=== PATIENT | female | born 1955 | race Caucasian/White ===

== ENCOUNTER 2018-04-28 17:05 | Observation (INO) ==
[2018-04-28 17:32] LABS: Basophils # 0.1 K/mcL (0.0-0.2); Basophils % 0.6 %; Eosinophils # 0.3 K/mcL (0.0-0.6); Eosinophils % 3.9 %; Hematocrit 35.3 % (35.3-44.9); Hemoglobin 11.4 g/dL (11.5-15.4); Immature Granulocytes % 0.2 % (0-4); Lymphocytes % 24.3 %; Mean Corpuscular HGB Conc 32.3 g/dL (31.6-35.5); Mean Corpuscular Hemoglobin 28.2 pg (28.0-33.3); Mean Corpuscular Volume 87.4 fL (83.0-100.0); Mean Platelet Volume 10.1 fL (9.4-12.4); Monocytes # 0.5 K/mcL (0.0-1.3); Monocytes % 6.5 %; Neutrophils # 5.3 K/mcL (1.6-8.9); Platelet Count 255 K/mcL (140-400); Red Blood Count 4.04 M/mcL (3.82-4.97); Red Cell Distribution Width 13.8 % (11.5-14.5); Segmented Neutrophils % 64.5 %
[2018-04-28] MEDS ORDERED: Ipratropium/Albuterol Neb 3 ML IH ONE (17:33)
[2018-04-28] MEDS ORDERED: Aspirin 81 MG TAB.CHEW PO ONE (17:33)
[2018-04-28] MEDS ORDERED: methylPREDNISolone 125 MG/2 ML VIAL IM ONE (17:34)
[2018-04-28 17:40] LABS: INR 0.9; Prothrombin Time 10.5 Seconds (9.4-12.1)
[2018-04-28] MEDS ORDERED: methylPREDNISolone 125 MG/2 ML VIAL IVP ONE (17:40)
[2018-04-28 17:43] LABS: Activated Partial Thrombo Time 31.1 Seconds (26.0-36.0)
[2018-04-28] MEDS ORDERED: *HR* LORazepam 2 MG/ML VIAL IVP ONE (17:43)
[2018-04-28 17:51] LABS: BUN/Creatinine Ratio 17 (6-26); Blood Urea Nitrogen 16 mg/dL (8-23); Calcium 9.5 mg/dL (8.6-10.3); Carbon Dioxide 28 mEq/L (23-29); Chloride 104 mEq/L (98-107); Glucose 101 mg/dL (70-105); Osmolality,Calculated 291 (280-300); Potassium 3.6 mEq/L (3.5-5.1); Sodium 140 mEq/L (136-145); eGFR For Non-African Americans 59 (> 60)
[2018-04-28 17:52] LABS: Troponin I < 0.03 ng/mL (< 0.04)
[2018-04-28] MEDS ORDERED: Isovue-370 500 ML INFUS..BTL IV ONE ×2 (18:16→22:05)
--- NOTE | 2018-04-28 19:13 | Emergency Department Note ---
Disposition Clinical Impression: Wheeze, Chest pain at rest, SOB (shortness of breath), Dizziness COPD (chronic obstructive pulmonary disease) Qualifiers: COPD type: unspecified COPD Qualified Code(s): J44.9 - Chronic obstructive pulmonary disease, unspecified Disposition: Admitted As Inpatient Condition: Good Instructions: Chest Pain (ED), Angina (ED), Chronic Obstructive Pulmonary Disease (ED) Referrals: Lisa Huff [Primary Care Provider] - Forms: ED Satisfaction Letter Time of Disposition: 19:30 (Dr Gaytan accepted the pt for serial trop and EKHG r/ O Angina) Chest Pain HPI - General Chief Complaint: ED Chest Pain Stated Complaint: chest pain x 15 minutes Source: patient Limitations: no limitations Vital Signs Reviewed: Yes Nursing Notes Reviewed: Yes - History of Present Illness HPI Narrative: Patient is a pleasant 62-year-old female with past medical history significant for HTN, DM, Dyslipidemia and COPD who is presenting to [facility] Emergency Room with a chief complaint off acute onset of chest pain which started 15 minutes prior to arrival. She describes pain 9/10 sharp and stabbing and pointing to mid chest and associated with SOB. Patient denies any fever, chills or night sweats. Pt also denies any eye pain or visual disturbances. There is no sore throat, nasal drainages or facial congestion. There is no palpitations or racing heart. There is no abdominal pain, nausea, vomiting or diarrhea. There is no urgency, frequency or dysuria. There is no muskulo- skeletal pain, arthralgia or back pain. Patient also denies any rash, edema or pruritus. There is no neurological manifestations, no headache, no vertigo or weakness. The patient also denies any anxiety, depression, hallucinations and has no homicidal or suicidal ideations. There is no polyuria, polydipsia or recent weight change. There is no easy bruising or bleeding. Review of other systems is otherwise negative except above. Duration: gradually worsening Onset: during rest Pain Location: epigastric Severity scale (1-10): 7 Quality: heaviness Improves with: nothing - Related Data Home Medications Medication Instructions Recorded Confirmed BuPROPion SR (12 HR) [Wellbutrin 300 mg PO QAM 01/08/16 02/18/16 SR] Colestipol HCl [Colestid] 2 gm PO DAILY 01/08/16 02/18/16 Furosemide [Lasix] 20 mg PO DAILY 01/08/16 02/18/16 Gabapentin [Neurontin] 800 mg PO QID 01/08/16 02/18/16 HYDROmorphone [Dilaudid] 2 mg PO Q6HR 01/08/16 02/18/16 Loratadine [Claritin] 10 mg PO DAILY 01/08/16 02/18/16 Losartan Potassium [Cozaar] 50 mg PO DAILY 01/08/16 02/18/16 Omeprazole [PriLOSEC] 40 mg PO DAILY 01/08/16 02/18/16 Potassium Chloride [Klor-Con 10 meq PO DAILY 01/08/16 02/18/16 Sprinkle] TraZODone 50 - 100 mg PO HS 01/08/16 02/18/16 Triamterene/HCTZ 37.5/25mg 1 each PO DAILY 01/08/16 02/18/16 [Dyazide] Venlafaxine XR (24 HR) [Effexor Xr] 37.5 mg PO DAILY 01/08/16 02/18/16 clonazePAM [Klonopin] 0.5 mg PO BID PRN 01/08/16 02/18/16 metFORMIN [Glucophage] 1,000 mg PO BIDWM 01/08/16 02/18/16 predniSONE [PredniSONE] 60 mg PO ONCE 02/18/16 02/18/16 Previous Rx's Medication Instructions Recorded Meclizine [Antivert] 25 mg PO TID PRN #30 tablet 01/11/16 amLODIPine [Norvasc] 10 mg PO DAILY #60 tablet 01/11/16 cloNIDine HCl [CloNIDine HCl] 0.3 mg PO TID #90 tablet 01/11/16 Aspirin 81 mg PO DAILY #30 tab.chew 02/18/16 Allergies Allergy/AdvReac Type Severity Reaction Status Date / Time iodine AdvReac Hypotension Verified 01/09/16 12:18 pregabalin [From Lyrica] AdvReac See Verified 01/07/16 22:06 Comments topiramate [From Topamax] AdvReac See Verified 02/18/16 06:45 Comments flu vaccine Allergy Severe See Uncoded 02/18/16 06:45 Comments All systems ED: reviewed and negative except as stated. Review of Systems: As Per HPI Constitutional: Denies: fever, chills Eyes: Denies: eye pain, eye discharge ENT ED: Denies: ear pain, throat pain Cardiovascular: Reports: chest pain. Denies: palpitations Respiratory: Reports: dyspnea. Denies: cough Gastrointestinal: Reports: nausea. Denies: abdominal pain Chest Pain PMH - Past Medical History Medical history: Reports: diabetes, GERD, hyperlipidemia, hypertension Surgical history: Reports: appendectomy, cholecystectomy, hysterectomy, knee replacement Psychiatric history: Reports: depression - Social History Smoking Status: Current every day smoker Alcohol use: Reports: none Drug use: Reports: none Physical Exam - General Limitations: no limitations General appearance: alert, in no apparent distress, anxious - Head Head exam: atraumatic, normocephalic, normal inspection - Eye Eye exam: Present: normal appearance, PERRL, EOMI - Expanded Eye Exam Pupils: Left: reactive - ENT ENT exam: normal exam, normal oropharynx, mucous membranes moist - Expanded ENT Exam External ear exam: Present: normal external inspection Mouth exam: Present: normal external inspection Teeth exam: Present: normal inspection Throat exam: Present: normal inspection - Neck Neck exam: Present: normal inspection, full ROM, trachea midline - Chest Chest inspection: Present: normal inspection, symmetric chest wall rise - Respiratory Respiratory exam: Present: wheezes, prolonged expiratory phase, other ( diminished air entry) - Cardiovascular Cardiovascular exam: Present: regular rate, normal rhythm, normal heart sounds - Abdominal Exam Abdominal exam: Present: soft, Non-Tender. Absent: tenderness, distention, guarding, rebound, rigidity - Extremities Exam Extremities exam: Present: normal inspection, full ROM. Absent: tenderness, pedal edema - Expanded Upper Extremity Exam Shoulder exam: Present: normal inspection, full ROM Arm exam: Present: normal inspection, full ROM Elbow exam: Present: normal inspection, full ROM Forearm/Wrist exam: Present: normal inspection, full ROM Hand exam: Present: normal inspection, full ROM Vascular exam: Normal: capillary refill, radial pulse - Expanded Lower Extremity Exam Hip/Pelvis exam: Present: normal inspection, full ROM Upper leg exam: Present: normal inspection, full ROM Knee exam: Present: normal inspection, full ROM Lower leg exam: Present: normal inspection, full ROM Ankle exam: Present: normal inspection, full ROM Foot/toe exam: Present: normal inspection, full ROM Neurovascular/Tendon exam: Absent: motor deficit, sensory deficit, tendon deficit - Back Exam Back exam: Present: normal inspection, full ROM. Absent: tenderness - Neurological Exam Neurological exam: Present: alert, oriented X3 - Expanded Neurological Exam Patient oriented to: Present: person, place, time Coma Scale Eye Opening: Spontaneous Coma Scale Motor Response: Obeys Commands Coma Scale Verbal Response: Oriented Coma Scale Total: 15 - Psychiatric Psychiatric exam: Present: normal affect, normal mood, anxious - Skin Skin exam: Present: warm, dry, intact, normal color Course Vital Signs Temperature 98.0 F 04/28/18 17:05 Pulse Rate 80 04/28/18 17:05 Respiratory Rate 20 04/28/18 17:05 Blood Pressure 0/0 04/28/18 17:05 O2 Sat by Pulse Oximetry 93 04/28/18 17:05 Temperature 98.0 F 04/28/18 17:05 Pulse Rate 69 04/28/18 18:07 Respiratory Rate 18 04/28/18 18:07 Blood Pressure 169/85 04/28/18 18:07 O2 Sat by Pulse Oximetry 95 04/28/18 18:07 Oxygen Delivery Oxygen Delivery Nasal Cannula Chest Pain - Differential Diagnosis Likely: pneumothorax, stable angina, unstable angina pectoris, st elevation myocardial infraction - Medical Records Medical records reviewed: Yes I reviewed the patient's medical records. - Lab Data Lab results reviewed: Yes I reviewed the patient's lab results. Result diagrams: 04/28/18 17:23 04/28/18 17:23 Lab Results 04/28/18 04/28/18 04/28/18 Range/Units 17:23 17:23 17:23 WBC 8.2 (4.3-11.1) K/mcL RBC 4.04 (3.82-4.97) M/mcL Hgb 11.4 L (11.5-15.4) g/dL Hct 35.3 (35.3-44.9) % MCV 87.4 (83.0-100.0) fL MCH 28.2 (28.0-33.3) pg MCHC 32.3 (31.6-35.5) g/dL RDW 13.8 (11.5-14.5) % Plt Count 255 (140-400) K/mcL MPV 10.1 (9.4-12.4) fL Immature Gran % 0.2 (0-4) % Seg Neutrophils % 64.5 % Lymphocytes % 24.3 % Monocytes % 6.5 % Eosinophils % 3.9 % Basophils % 0.6 % Neutrophils # 5.3 (1.6-8.9) K/mcL Lymphocytes # 2.0 (0.6-4.6) K/mcL Monocytes # 0.5 (0.0-1.3) K/mcL Eosinophils # 0.3 (0.0-0.6) K/mcL Basophils # 0.1 (0.0-0.2) K/mcL PT 10.5 (9.4-12.1) Seconds INR 0.9 APTT 31.1 (26.0-36.0) Seconds Sodium 140 (136-145) mEq/L Potassium 3.6 (3.5-5.1) mEq/L Chloride 104 (98-107) mEq/L Carbon Dioxide 28 (23-29) mEq/L BUN 16 (8-23) mg/dL Creatinine 0.95 (0.60-1.20) mg/dL Est GFR ( Amer) > 60 (> 60) Est GFR (Non-Af Amer) 59 L (> 60) BUN/Creatinine Ratio 17 (6-26) Glucose 101 (70-105) mg/dL Calculated Osmolality 291 (280-300) Lactic Acid (0.5-2.2) mmol/L Calcium 9.5 (8.6-10.3) mg/dL Troponin I < 0.03 (< 0.04) ng/mL 04/28/18 Range/Units 17:23 WBC (4.3-11.1) K/mcL RBC (3.82-4.97) M/mcL Hgb (11.5-15.4) g/dL Hct (35.3-44.9) % MCV (83.0-100.0) fL MCH (28.0-33.3) pg MCHC (31.6-35.5) g/dL RDW (11.5-14.5) % Plt Count (140-400) K/mcL MPV (9.4-12.4) fL Immature Gran % (0-4) % Seg Neutrophils % % Lymphocytes % % Monocytes % % Eosinophils % % Basophils % % Neutrophils # (1.6-8.9) K/mcL Lymphocytes # (0.6-4.6) K/mcL Monocytes # (0.0-1.3) K/mcL Eosinophils # (0.0-0.6) K/mcL Basophils # (0.0-0.2) K/mcL PT (9.4-12.1) Seconds INR APTT (26.0-36.0) Seconds Sodium (136-145) mEq/L Potassium (3.5-5.1) mEq/L Chloride (98-107) mEq/L Carbon Dioxide (23-29) mEq/L BUN (8-23) mg/dL Creatinine (0.60-1.20) mg/dL Est GFR ( Amer) (> 60) Est GFR (Non-Af Amer) (> 60) BUN/Creatinine Ratio (6-26) Glucose (70-105) mg/dL Calculated Osmolality (280-300) Lactic Acid 0.5 (0.5-2.2) mmol/L Calcium (8.6-10.3) mg/dL Troponin I (< 0.04) ng/mL - Radiology Data Radiology results reviewed: Yes I reviewed the patient's radiology results. - EKG Data EKG attestation: Yes I reviewed and interpreted this EKG. EKG shows normal: sinus rhythm Rate: normal Rhythm: NSR
[2018-04-28] MEDS ORDERED: Naloxone 0.4 MG/ML INJ IVP PRN ×3 (20:11→22:05)
[2018-04-28] MEDS ORDERED: predniSONE 20 MG TABLET PO ONE (20:15)
[2018-04-28] MEDS ORDERED: clonazePAM 0.5 MG TABLET PO PRN (22:05)
[2018-04-28] MEDS: Gabapentin 400 MG CAPSULE PO SCH (22:51)
[2018-04-28] MEDS: cloNIDine HCl 0.1 MG TABLET PO SCH (22:51)
[2018-04-29] MEDS: *HR* HYDROmorphone 2 MG TABLET PO SCH ×3 (00:21→12:28)
[2018-04-29] MEDS ORDERED: Insulin DETEMIR 100 UNIT/ML per UNIT SQ ONE (01:00)
[2018-04-29] MEDS ORDERED: *HR* Dextrose 50 % in Water (Syg) 50 ML SYRINGE IVP PRN (01:15)
[2018-04-29] MEDS ORDERED: Insulin LISPRO 300 UNITS/3 ML VIAL SQ SCH (01:15)
[2018-04-29] MEDS ORDERED: Dextrose Gel 15 GM/37.5 ML TUBE PO PRN ×2 (01:15)
[2018-04-29] MEDS ORDERED: D5% in Water 1,000 ML IVC PRN (01:15)
[2018-04-29 03:47] LABS: Basophils % 0.2 %; Eosinophils % 0.1 %; Hematocrit 33.2 % (35.3-44.9); Hemoglobin 10.8 g/dL (11.5-15.4); Immature Granulocytes % 0.5 % (0-4); Lymphocytes # 0.6 K/mcL (0.6-4.6); Lymphocytes % 5.7 %; Mean Corpuscular HGB Conc 32.5 g/dL (31.6-35.5); Mean Corpuscular Hemoglobin 28.1 pg (28.0-33.3); Mean Corpuscular Volume 86.2 fL (83.0-100.0); Mean Platelet Volume 10.2 fL (9.4-12.4); Monocytes # 0.1 K/mcL (0.0-1.3); Monocytes % 0.8 %; Neutrophils # 9.8 K/mcL (1.6-8.9); Platelet Count 237 K/mcL (140-400); Red Blood Count 3.85 M/mcL (3.82-4.97); Red Cell Distribution Width 13.7 % (11.5-14.5); Segmented Neutrophils % 92.7 %
[2018-04-29 04:06] LABS: Alanine Aminotransferase 11 Units/L (7-52); Albumin 3.5 g/dL (3.5-5.7); Albumin/Globulin Ratio 1.3 (1.1-2.2); Alkaline Phosphatase 77 Units/L (34-104); Aspartate Amino Transferase 11 Units/L (13-39); BUN/Creatinine Ratio 23 (6-26); Bilirubin,Total 0.2 mg/dL (0.3-1.0); Blood Urea Nitrogen 25 mg/dL (8-23); Carbon Dioxide 24 mEq/L (23-29); Chloride 102 mEq/L (98-107); Chol/HDL Ratio 3.6 (0-4.9); Cholesterol 140 mg/dL (< 200); Globulin 2.8 g/dL (2.4-3.5); Glucose 302 mg/dL (70-105); HDL Cholesterol 39 mg/dL (40-59); LDL Cholesterol,Calculated 77 mg/dL (0-99); Magnesium 1.8 mg/dL (1.6-2.6); Osmolality,Calculated 300 (280-300); Phosphorous 3.9 mg/dL (2.7-4.5); Potassium 3.9 mEq/L (3.5-5.1); Sodium 137 mEq/L (136-145); Total Protein 6.3 g/dL (6.4-8.9); Triglycerides 118 mg/dL (< 150); eGFR For Non-African Americans 52 (> 60)
[2018-04-29] MEDS ORDERED: *HR* Metformin 500 MG TABLET PO SCH (08:00)
[2018-04-29] MEDS: Gabapentin 400 MG CAPSULE PO SCH ×2 (08:36→12:28)
[2018-04-29] MEDS: cloNIDine HCl 0.1 MG TABLET PO SCH (08:38)
[2018-04-29] MEDS: Insulin LISPRO 300 UNITS/3 ML VIAL SQ SCH ×2 (08:40→12:29)
[2018-04-29] MEDS ORDERED: amLODIPine 5 MG TABLET PO SCH (09:00)
[2018-04-29] MEDS ORDERED: Aspirin 81 MG TAB.CHEW PO SCH (09:00)
[2018-04-29] MEDS ORDERED: (Colestipol Hcl [Colestid] 2 GM) PO SCH (09:00)
[2018-04-29] MEDS ORDERED: Loratadine 10 MG TABLET PO SCH (09:00)
[2018-04-29] MEDS ORDERED: Furosemide 20 MG TABLET PO SCH (09:00)
[2018-04-29] MEDS ORDERED: BuPROPion SR (12 HR) 150 MG TABLET PO SCH (09:00)
[2018-04-29] MEDS ORDERED: Venlafaxine XR (24 HR) 37.5 MG CAP.ER.24H PO SCH (09:00)
[2018-04-29 11:49] VITALS: BP 145/80
--- NOTE | 2018-04-29 12:32 | Internal Med History&Physical ---
Date of Encounter: 04/29/18 Time of Encounter: 12:00 Assessment and Plan (1) Chest pain Current visit: Yes Status: Acute Doubt myocardial ischemia from history and physical. Suspect chest wall origin. Repeat cardiac enzymes were ordered through emergency room. Qualifiers: Chest pain type: precordial pain Qualified Code(s): R07.2 - Precordial pain (2) Hypertension Current visit: No Status: Chronic Continue home medications and monitor blood pressure. Qualifiers: Hypertension type: essential hypertension Qualified Code(s): I10 - Essential (primary) hypertension Internal Medicine - H&P: HPI Chief complaint: Chest pain, cough, dyspnea Admitted From: Emergency Dept Plans for Post Hospital Care: Home History of present illness: Ms. Morgan is a 62 year old female who came to emergency room complaining of sudden onset of chest discomfort while doing leisure activities in her kitchen. She describes it as a sharp pain in her mid sternal area. She had slight cough with little productivity. She came to emergency room and was evaluated and was admitted to [facility] floor for ongoing care needs. She states she still has some discomfort in her chest but it is now a dull sensation. She has had increased cough with little productivity. She has not had significant fevers or chills. Respiratory history is significant for having smoked from age 12 a total of 25 years up to one pack per day. She reports unremarkable PFTs approximately 20 years ago. She has ANTHONY and uses CPAP at bedtime. Cardiovascular history is significant for hypertension. She denies MD heart failure angina DVT or pulmonary embolus. She has heart catheter 02/18/2016 at [facility] which showed 20% stenosis in the proximal circumflex and 20% stenosis in the proximal RCA. Other vessels showed no CAD. LVEF was 70%. Echocardiogram 08/26/2017 showed LVEF of 60% with reported mild LV diastolic dysfunction although E/A ratio is 1.0. No significant valvular abnormalities were seen. The interventricular septum and posterior wall thickness measurements were 1.36 and troponin a 2 cm respectively. LAE was seen at 4.20 cm. Past Med Surg Social Fam HX - Past Medical History Medical history: diabetes, GERD, hyperlipidemia, hypertension Additional medical history: sleep apnea, malignant melanoma, stress incontinence , hemngioma, URI, rosacea, osteoporosis, neuropathy, lumbar DDD Psychiatric history: depression - Past Surgical History Surgical History: appendectomy, cholecystectomy, hysterectomy, knee replacement Additional surgical history: melanoma excision, HYSTERECTOMY - Social History Smoking Status: Current every day smoker Packs per day: 1 Smokeless Tobacco Status: No Alcohol use: none Drug use: none - Family History Mother Hx Family Cardiac Disorders: Yes Father Hx Family Cardiac Disorders: Yes Brother Hx Family Cardiac Disorders: Yes Internal Medicine - H&P: Meds BuPROPion SR (12 HR) [Wellbutrin SR] 150 mg PO QAM 01/08/16 [History] Colestipol HCl [Colestid] 2 gm PO DAILY 01/08/16 [History] Furosemide [Lasix] 20 mg PO DAILY 01/08/16 [History] Gabapentin [Neurontin] 800 mg PO QID 01/08/16 [History] HYDROmorphone [Dilaudid] 2 mg PO Q6HR 01/08/16 [History] clonazePAM [Klonopin] 0.5 mg PO BID PRN 01/08/16 [History] amLODIPine [Norvasc] 10 mg PO DAILY #60 tablet 01/11/16 [Rx] cloNIDine HCl [CloNIDine HCl] 0.3 mg PO TID #90 tablet 01/11/16 [Rx] Aspirin 81 mg PO DAILY #30 tab.chew 02/18/16 [Rx] Famotidine [Heartburn Prevention] 20 mg PO DAILY 04/28/18 [History] Insulin Degludec [Tresiba Flextouch U-200] 44 units SQ DAILY 04/28/18 [History] Metoprolol Tartrate 25 mg PO DAILY 04/28/18 [History] NIFEdipine [Nifedipine ER] 60 mg PO DAILY 04/28/18 [History] Sodium Bicarbonate 650 mg PO BID 04/28/18 [History] Spironolactone [Aldactone] 100 mg PO DAILY 04/28/18 [History] lamoTRIgine [Lamotrigine] 150 mg PO DAILY 04/28/18 [History] 3 Allergy/AdvReac Type Severity Reaction Status Date / Time iodine AdvReac Hypotension Verified 01/09/16 12:18 pregabalin [From Lyrica] AdvReac See Verified 01/07/16 22:06 Comments topiramate [From Topamax] AdvReac See Verified 02/18/16 06:45 Comments flu vaccine Allergy Severe See Uncoded 02/18/16 06:45 Comments All Systems PM: A 10-system review of systems was performed and is negative for pertinent findings except as documented above in the HPI. Review of systems: Gen.: She states her weight has been stable the past few months Cardiovascular: As per history of present illness Respiratory: As per history of present illness GI: She has GERD. She has had cholecystectomy. She denies disorders of her liver or exocrine pancreas : She has chronic kidney disease stage III and follows with a oil exploration engineer. She reports she has overactive bladder with urinary frequency. Neurologic: She reports she had a stroke in 2016 leaving her with impaired memory and balance. She denies seizures. She has diabetic peripheral neuropathy. Endocrine: She was diagnosed with DM 2 1997. She has hyperlipidemia but denies known thyroid disease. Hematology/oncology: She had melanoma removed from her right lower leg in 1994 without recurrence. She has anemia. She denies other blood disorders or malignancies. Psychiatric: She has anxiety and depression but denies other mental health issues. Musko skeletal: She has DJD. She has had bilateral shoulder surgeries and right total knee replacement. She denies gout or other bone joint or muscle disorders. - Constitutional Vitals: Temp Pulse Resp BP Pulse Ox 98.6 F 81 18 145/80 95 04/29/18 11:48 04/29/18 11:48 04/29/18 11:48 04/29/18 11:48 04/29/18 11:48 Exam: Gen.: She is a well-developed overweight female resting comfortably on the side of bed who appears in minimal distress at present time. HEENT: Head is atraumatic and normocephalic. Eyes: EOMI. There is no scleral icterus. Mouth: Mucosa is moist. Neck: Supple and nontender. There is no thyromegaly or adenopathy noted. Heart: Regular without murmurs gallops or ectopics Lungs: No wheezes or crackles are heard. She has occasional coughing during examination. Chest: She has tenderness on compression of costosternal joints stating "that is the pain" Abdomen: Soft and nontender. No masses or guarding are noted. Extremities: There is no cyanosis edema or clubbing noted. Dorsalis pedis and posttibial pulses are trace to 1+ palpable bilaterally. Her feet are warm to touch. Neurologic: Mental status: She is talkative and a good historian. Cranial nerves: Smile is symmetric. Forehead wrinkles bilaterally. Tongue protrudes midline. EOMI. Motor: There is no pronator drift. Cerebellar: Finger to nose is intact bilaterally. Skin: Warm and dry Internal Med - H&P Results - Labs CBC & Chem 7: 04/29/18 03:41 04/29/18 03:41 Labs: Short CBC 04/29/18 Range/Units 03:41 WBC 10.6 (4.3-11.1) K/mcL Hgb 10.8 L (11.5-15.4) g/dL Hct 33.2 L (35.3-44.9) % Plt Count 237 (140-400) K/mcL Neutrophils # 9.8 H (1.6-8.9) K/mcL BMP 04/29/18 03:41 Sodium 137 Potassium 3.9 Chloride 102 Carbon Dioxide 24 BUN 25 H Creatinine 1.07 Glucose 302 H Calcium 9.0 Cardiac Enzymes 04/29/18 04/29/18 Range/Units 03:41 08:10 Troponin I < 0.03 < 0.03 (< 0.04) ng/mL Liver Function 04/29/18 Range/Units 03:41 Total Bilirubin 0.2 L (0.3-1.0) mg/dL AST 11 L (13-39) Units/L ALT 11 (7-52) Units/L Alkaline Phosphatase 77 (34-104) Units/L Albumin 3.5 (3.5-5.7) g/dL
--- NOTE | 2018-04-29 12:49 | Discharge Summary ---
Date of Encounter: 04/29/18 Time of Encounter: 12:00 - Discharge Diagnosis (1) Chest pain Priority: Primary Status: Acute Qualifiers: Chest pain type: precordial pain Qualified Code(s): R07.2 - Precordial pain (2) Hypertension Priority: Secondary Status: Chronic Qualifiers: Hypertension type: essential hypertension Qualified Code(s): I10 - Essential (primary) hypertension Hospital course: Ms. Morgan is a 62 year old female who came to emergency room complaining of sudden onset of chest discomfort while doing leisure activities in her kitchen. She describes it as a sharp pain in her mid sternal area. She had slight cough with little productivity. She came to emergency room and was evaluated and was admitted to [facility] for ongoing care needs. Initial orders were written by the emergency room physician. I saw her on April 29 and performed a history physical and discharge. Repeat cardiac enzymes showed no evidence of myocardial damage. When I saw her I felt the chest pain was likely chest wall origin since it was reproducible by sternal compression. I told her I did not feel she should take NSAIDs because of renal insufficiency. I also told her prednisone would likely significantly raise her blood glucose. She will use OTC Tylenol and topical NSAIDs like BenGay as needed. Her PCP can follow up on this and consider costosternal joint injections if symptoms do not improve. There were no other new problems and on April 29 she was stable for discharge home. She will follow with her PCP within 1 week. - Time Spent with Patient Total time spent providing and/or coordinating discharge services: - Discharge Medications Home Medications: BuPROPion SR (12 HR) [Wellbutrin SR] 150 mg PO QAM 01/08/16 [History] Colestipol HCl [Colestid] 2 gm PO DAILY 01/08/16 [History] Furosemide [Lasix] 20 mg PO DAILY 01/08/16 [History] Gabapentin [Neurontin] 800 mg PO QID 01/08/16 [History] HYDROmorphone [Dilaudid] 2 mg PO Q6HR 01/08/16 [History] clonazePAM [Klonopin] 0.5 mg PO BID PRN 01/08/16 [History] amLODIPine [Norvasc] 10 mg PO DAILY #60 tablet 01/11/16 [Rx] cloNIDine HCl [CloNIDine HCl] 0.3 mg PO TID #90 tablet 01/11/16 [Rx] Aspirin 81 mg PO DAILY #30 tab.chew 02/18/16 [Rx] Famotidine [Heartburn Prevention] 20 mg PO DAILY 04/28/18 [History] Insulin Degludec [Tresiba Flextouch U-200] 44 units SQ DAILY 04/28/18 [History] Metoprolol Tartrate 25 mg PO DAILY 04/28/18 [History] NIFEdipine [Nifedipine ER] 60 mg PO DAILY 04/28/18 [History] Sodium Bicarbonate 650 mg PO BID 04/28/18 [History] Spironolactone [Aldactone] 100 mg PO DAILY 04/28/18 [History] lamoTRIgine [Lamotrigine] 150 mg PO DAILY 04/28/18 [History] Allergies/Adverse Reactions: 3 Allergy/AdvReac Type Severity Reaction Status Date / Time iodine AdvReac Hypotension Verified 01/09/16 12:18 pregabalin [From Lyrica] AdvReac See Verified 01/07/16 22:06 Comments topiramate [From Topamax] AdvReac See Verified 02/18/16 06:45 Comments flu vaccine Allergy Severe See Uncoded 02/18/16 06:45 Comments Date of admission: 04/28/18 21:02 Primary care physician: Lisa Huff - Constitutional Vitals: Temp Pulse Resp BP Pulse Ox 98.6 F 81 18 145/80 95 04/29/18 11:48 04/29/18 11:48 04/29/18 11:48 04/29/18 11:48 04/29/18 11:48 - Patient Status Disposition: Home, Self-Care Condition: Good - Discharge Instructions Follow Up With: Lisa Huff [Primary Care Provider] - 1 week - Diet and Activity Activity: resume usual activities as tolerated Diet: diabetic diet
[2018-04-29] MEDS ORDERED: Albuterol 2.5 MG/3 ML NEBULIZER IH ONE (13:26)
[2018-04-29] MEDS ORDERED: Insulin DETEMIR 100 UNIT/ML X5UNITS SQ SCH (21:00)
--- NOTE | 2018-04-30 17:34 | Electrocardiograph Report ---
[address] [place], [place] [address] Test Date: 2018-04-28 Pat Name: Madison Morgan Department: [id number] Room: [facility] Gender: F [place] Farmer: [id number] : 1955 Requested By: Tg Lee Order Number: [id number] Reading MD: Kiera Perry Measurements Intervals [place] Rate: 80 P: 65 KS: 201 QRS: 43 QRSD: 86 T: 60 QT: 368 QTc: 404 Interpretive Statements SINUS RHYTHM Electronically Signed On 04-30-2018 17:32:45 EDT by Kiera Perry
== END 2018-04-29 14:45 | disposition home or self-care (01) ==
LOC: INPPIK 17:05 → EMEROOPIK 17:05 → INPPIK 22:03
PROVIDERS: ADMIT Internal Medicine; ATTEND Internal Medicine

== ENCOUNTER 2021-08-12 20:51 | Inpatient (IN) ==
[2021-08-12] MEDS ORDERED: cefTRIAXone 1,000 MG in Water for inj. (sterile) 10 ML IVP ONE (21:17)
[2021-08-12] MEDS ORDERED: Piperacillin/Tazobactam 3.375 GM in 0.9 % Sodium Chloride Mini Bag 100 ML IVPB ONE (21:17)
[2021-08-12 21:31] LABS: Hematocrit 34.6 % (35.3-44.9); Hemoglobin 11.3 g/dL (11.5-15.4); Immature Granulocytes % 0.6 % (0-4); Lymphocytes # 0.4 K/mcL (0.6-4.6); Lymphocytes % 7.6 %; Mean Corpuscular HGB Conc 32.7 g/dL (31.6-35.5); Mean Corpuscular Hemoglobin 28.3 pg (28.0-33.3); Mean Corpuscular Volume 86.5 fL (83.0-100.0); Mean Platelet Volume 11.1 fL (9.4-12.4); Monocytes # 0.2 K/mcL (0.0-1.3); Monocytes % 3.7 %; Neutrophils # 4.3 K/mcL (1.6-8.9); Platelet Count 168 K/mcL (140-400); Red Cell Distribution Width 14.4 % (11.5-14.5); Segmented Neutrophils % 88.1 %; White Blood Count 4.9 K/mcL (4.3-11.1)
[2021-08-12 21:37] LABS: Bilirubin,Urine Negative (Negative); Blood,Urine Small (Negative); Clarity,Urine Cloudy (Clear); Color,Urine Yellow (Yellow); Glucose,Urine (UA) 500 mg/dL (Normal); Ketones,Urine Negative (Negative); Leukocyte Esterase,Urine Negative (Negative); Nitrite,Urine Negative (Negative); Protein,Urine >=300 mg/dL (Neg-Trace); Specific Gravity,Urine 1.025 (1.010-1.025); Urobilinogen,Urine Normal (Normal)
[2021-08-12] MEDS: 0.9 % Sodium Chloride 1,000 ML IVC SCH ×2 (21:40→23:14)
[2021-08-12 21:41] LABS: INR 1.1; Prothrombin Time 12.7 Seconds (9.4-12.1)
[2021-08-12 21:43] LABS: Activated Partial Thrombo Time 31.7 Seconds (26.0-36.0)
[2021-08-12 21:47] LABS: Granular Casts,Urine Moderate per lpf (None Seen)
[2021-08-12 21:50] LABS: Bacteria,Urine Many per hpf (None-Few)
[2021-08-12 21:52] LABS: Alanine Aminotransferase 26 Units/L (7-52); Albumin 3.5 g/dL (3.5-5.7); Albumin/Globulin Ratio 1.2 (1.1-2.2); Alkaline Phosphatase 55 Units/L (34-104); Amylase 24 Units/L (29-103); Aspartate Amino Transferase 40 Units/L (13-39); BUN/Creatinine Ratio 16 (6-26); Bilirubin,Indirect 0.3 mg/dL (0.0-1.0); Bilirubin,Total 0.3 mg/dL (0.3-1.0); Blood Urea Nitrogen 29 mg/dL (8-23); Calcium 7.7 mg/dL (8.6-10.3); Carbon Dioxide 24 mEq/L (23-29); Chloride 101 mEq/L (98-107); Glucose 189 mg/dL (70-105); Lipase 46 Units/L (11-82); Magnesium 1.6 mg/dL (1.6-2.6); Osmolality,Calculated 295 (280-300); Phosphorous 2.4 mg/dL (2.7-4.5); Potassium 3.7 mEq/L (3.5-5.1); Sodium 137 mEq/L (136-145); Total Protein 6.5 g/dL (6.4-8.9); eGFR For African Americans 33 (> 60); eGFR For Non-African Americans 27 (> 60)
[2021-08-12 21:53] LABS: Troponin I < 0.03 ng/mL (< 0.04)
[2021-08-12 21:53] LABS: Squamous Epithelial Cell,Urine Moderate per hpf (None-Few); WBC,Urine TNTC per hpf (0-3)
[2021-08-12] MEDS ORDERED: Ondansetron 4 MG/2 ML VIAL IVP ONE (21:54)
[2021-08-12] MEDS ORDERED: Dexamethasone Sodium Phos/PF 10 MG/ML VIAL IVP ONE (22:16)
[2021-08-13] MEDS: 0.9 % Sodium Chloride 1,000 ML IVC SCH (00:44)
[2021-08-13] MEDS ORDERED: Ondansetron 4 MG/2 ML VIAL IVP PRN ×3 (00:49→01:51)
[2021-08-13] MEDS ORDERED: Naloxone 0.4 MG/ML INJ IVP PRN ×3 (00:49→01:51)
[2021-08-13] MEDS ORDERED: Acetaminophen 325 MG TABLET PO PRN (00:49)
[2021-08-13] MEDS ORDERED: Dextrose Gel 15 GM/37.5 ML TUBE PO PRN ×8 (00:53→17:39)
[2021-08-13] MEDS ORDERED: D5% in Water 1,000 ML IVC PRN ×4 (00:53→17:39)
[2021-08-13] MEDS ORDERED: *HR* Dextrose 50 % in Water (Syg) 50 ML SYRINGE IVP PRN ×4 (00:53→17:39)
[2021-08-13] MEDS ORDERED: MOM Conc 10 ML UD.LIQ PO PRN (01:51)
[2021-08-13] MEDS ORDERED: Mag Hydrox/Al Hydrox/Simeth 30 ML UDC PO PRN (01:51)
[2021-08-13] MEDS ORDERED: 0.9 % Sodium Chloride 1,000 ML IVC SCH (01:51)
[2021-08-13] MEDS ORDERED: Calcium Gluconate 1gm/50mL 1 GM/50 ML BAG IVPB ONE (01:51)
[2021-08-13] MEDS ORDERED: Melatonin 3 MG TABLET PO PRN (01:51)
[2021-08-13] MEDS: Acetaminophen 325 MG TABLET PO PRN (03:30)
[2021-08-13] MEDS: *HR* Heparin 5,000 UNIT/ML VIAL SQ SCH ×4 (05:34→23:23)
[2021-08-13] MEDS ORDERED: *HR* Enoxaparin 40 MG/0.4 ML SYRINGE SQ SCH (06:00)
[2021-08-13] MEDS ORDERED: Insulin LISPRO 300 UNITS/3 ML VIAL SUBQ SCH ×5 (07:30→21:00)
[2021-08-13 07:53] LABS: Basophils % 0.2 %; Hematocrit 36.3 % (35.3-44.9); Hemoglobin 11.5 g/dL (11.5-15.4); Immature Granulocytes % 0.5 % (0-4); Lymphocytes # 0.3 K/mcL (0.6-4.6); Lymphocytes % 6.3 %; Mean Corpuscular HGB Conc 31.7 g/dL (31.6-35.5); Mean Corpuscular Hemoglobin 27.9 pg (28.0-33.3); Mean Corpuscular Volume 88.1 fL (83.0-100.0); Mean Platelet Volume 10.8 fL (9.4-12.4); Monocytes # 0.1 K/mcL (0.0-1.3); Monocytes % 1.7 %; Neutrophils # 3.8 K/mcL (1.6-8.9); Platelet Count 155 K/mcL (140-400); Red Blood Count 4.12 M/mcL (3.82-4.97); Red Cell Distribution Width 14.4 % (11.5-14.5); Segmented Neutrophils % 91.3 %; White Blood Count 4.2 K/mcL (4.3-11.1)
[2021-08-13] MEDS ORDERED: Piperacillin/Tazobactam 3.375 GM in 0.9 % Sodium Chloride Mini Bag 100 ML IVPB SCH ×2 (08:00)
[2021-08-13 08:13] LABS: Calcium 7.6 mg/dL (8.6-10.3); Magnesium 1.7 mg/dL (1.6-2.6); Potassium 4.2 mEq/L (3.5-5.1)
[2021-08-13 08:25] LABS: Thyroid Stimulating Hormone 0.348 mcIU/mL (0.340-5.600)
[2021-08-13] MEDS: Insulin LISPRO 300 UNITS/3 ML VIAL SUBQ SCH ×3 (08:40→16:02)
[2021-08-13] MEDS ORDERED: Ipratropium/Albuterol Neb 3 ML IH SCH (09:00)
[2021-08-13] MEDS ORDERED: cefTRIAXone 2,000 MG in 0.9 % Sodium Chloride Mini Bag 100 ML IVPB SCH (09:00)
[2021-08-13 09:45] LABS: Estimated Average Glucose 160 mg/dl; Hemoglobin A1C 7.2 %
[2021-08-13] MEDS: Piperacillin/Tazobactam 3.375 GM in 0.9 % Sodium Chloride Mini Bag 100 ML IVPB SCH ×2 (10:13→15:47)
[2021-08-13] MEDS ORDERED: Ipratropium/Albuterol Neb 3 ML IH PRN (12:14)
[2021-08-13] MEDS ORDERED: traZODone 50 MG TABLET PO PRN (13:59)
[2021-08-13] MEDS ORDERED: *HR* OxyCODONE Immed Rel 5 MG TABLET PO PRN (13:59)
[2021-08-13] MEDS: Gabapentin 300 MG CAPSULE PO SCH ×2 (15:43→21:30)
[2021-08-13] MEDS: cloNIDine HCL 0.1 MG TABLET PO SCH ×2 (15:43→21:29)
[2021-08-13] MEDS: hydrALAZINE 25 MG TABLET PO SCH ×2 (15:44→21:30)
[2021-08-13] MEDS ORDERED: Insulin DETEMIR 100 UNIT/ML X5UNITS SUBQ SCH (21:00)
[2021-08-13] MEDS: Metoprolol XL (24 HR) Succ 25 MG TAB.ER.24H PO SCH (21:29)
[2021-08-13] MEDS: Budesonide/Formoterol 160/4.5 1 PUFF INH IH SCH (23:21)
[2021-08-14] MEDS: Piperacillin/Tazobactam 3.375 GM in 0.9 % Sodium Chloride Mini Bag 100 ML IVPB SCH ×2 (02:05→08:22)
[2021-08-14] MEDS: Acetaminophen 325 MG TABLET PO PRN ×2 (02:27→08:18)
[2021-08-14] MEDS: *HR* Heparin 5,000 UNIT/ML VIAL SQ SCH (05:59)
[2021-08-14] MEDS: cloNIDine HCL 0.1 MG TABLET PO SCH (08:18)
[2021-08-14] MEDS: hydrALAZINE 25 MG TABLET PO SCH (08:18)
[2021-08-14] MEDS: Metoprolol XL (24 HR) Succ 25 MG TAB.ER.24H PO SCH (08:18)
[2021-08-14] MEDS: Gabapentin 300 MG CAPSULE PO SCH (08:19)
[2021-08-14] MEDS: Insulin LISPRO 300 UNITS/3 ML VIAL SUBQ SCH ×2 (08:24→12:27)
[2021-08-14] MEDS ORDERED: Furosemide 20 MG TABLET PO SCH (09:00)
[2021-08-14] MEDS ORDERED: lamoTRIgine 100 MG TABLET PO SCH (09:00)
[2021-08-14] MEDS ORDERED: Insulin DETEMIR 100 UNIT/ML X5UNITS SUBQ SCH (09:00)
[2021-08-14] MEDS ORDERED: NIFEdipine XL (24 HR) 60 MG TAB.ER.24 PO SCH (09:00)
[2021-08-14] MEDS ORDERED: polyethylene glycoL 3350 17 GM POWD.PACK PO SCH (09:00)
[2021-08-14] MEDS ORDERED: BuPROPion SR (12 HR) 150 MG TABLET PO SCH (09:00)
[2021-08-14] MEDS ORDERED: NON-FORMULARY MEDICATION 1 EACH EACH (Omeprazole 40 MG Capsule.Dr) PO SCH (09:00)
[2021-08-14] MEDS ORDERED: Fluticasone Propionate Nasal 50 MCG/SPRAY BOTTLE NS SCH (09:00)
[2021-08-14 09:16] LABS: Basophils % 0.1 %; Hematocrit 33.6 % (35.3-44.9); Hemoglobin 10.6 g/dL (11.5-15.4); Immature Granulocytes % 0.8 % (0-4); Lymphocytes # 0.3 K/mcL (0.6-4.6); Lymphocytes % 3.8 %; Mean Corpuscular HGB Conc 31.5 g/dL (31.6-35.5); Mean Corpuscular Hemoglobin 27.3 pg (28.0-33.3); Mean Corpuscular Volume 86.6 fL (83.0-100.0); Mean Platelet Volume 11.3 fL (9.4-12.4); Monocytes # 0.2 K/mcL (0.0-1.3); Platelet Count 210 K/mcL (140-400); Red Blood Count 3.88 M/mcL (3.82-4.97); Red Cell Distribution Width 14.7 % (11.5-14.5); Segmented Neutrophils % 93.3 %; White Blood Count 8.4 K/mcL (4.3-11.1)
[2021-08-14 09:48] LABS: Calcium 7.7 mg/dL (8.6-10.3); Magnesium 1.5 mg/dL (1.6-2.6); Potassium 3.9 mEq/L (3.5-5.1)
[2021-08-14] MEDS ORDERED: Dexamethasone Sodium Phos/PF 10 MG/ML VIAL IVP STA (10:01)
[2021-08-14] MEDS: Budesonide/Formoterol 160/4.5 1 PUFF INH IH SCH (10:06)
[2021-08-14 10:16] VITALS: RESP 24
[2021-08-14 10:19] LABS: Neutrophils # 7.8 K/mcL (1.6-8.9)
[2021-08-14 12:36] VITALS: BP 117/64; PULSE 81; TEMP 98.8
[2021-08-14 13:21] VITALS: O2SAT 89
[2021-08-15] MEDS ORDERED: Dexamethasone Sodium Phos/PF 10 MG/ML VIAL IVP SCH ×2 (09:00)
[2021-08-19] MEDS ORDERED: Ergocalciferol (VIT D2) 50,000 UNIT (1.25MG) CAP PO SCH (13:59)
== END 2021-08-14 14:19 | disposition short-term general hospital (02) | DRG 177 ==
LOC: INPPIK 20:51 → EMEROOPIK 20:51 → OBSVTOIN 08-13 01:23 → INPPIK 08-13 01:50
PROVIDERS: ADMIT Student in an Organized Health Care Education/Training Program; ATTEND Family Medicine